=== PATIENT | female | born 1985 | race African-American/Black ===

== ENCOUNTER 2019-01-05 04:24 | Emergency (ER) | payer SELFPAY ==
--- NOTE | 2019-01-05 04:42 | PDOC ---
History of Present Illness - General Stated Complaint: VAGINAL SX Time Seen by Provider: 01/05/19 04:39 History Source: Patient Exam Limitations: No Limitations - History of Present Illness Initial Comments: 33 year old female with no PMH, recently stopped depo treatment (11/2018) presented to ED for bilateral lower quadrant abdominal pain since 0200. Pt reported she was resting comfortably, then suddenly developed bilateral lower abdominal pain. Pt reported her pain is constant, radiating to the back, no aggravating or alleviating factors. Pt denied nausea, vomiting, diarrhea, constipation, dysuria, hematuria, flank pain, vaginal bleeding, vaginal discharge. ROS General: denied fever, chills, generalized weakness. HEENT: denied sore throat, rhinorrhea, ear pain. Cardiovascular: denied chest pain, palpitations, syncope, diaphoresis. Respiratory: denied shortness of breath, cough, sputum production, hemoptysis. Gastrointestinal: admitted to abdominal pain. denied nausea, vomiting, diarrhea , constipation, blood in stool. Genitourinary: denied dysuria, increased urinary frequency, vaginal bleeding, vaginal discharge, hematuria, urinary incontinence, flank pain. Back: denied back pain. Musculoskeletal: denied joint pain, muscle pain, joint swelling. Neurological: denied headache, dizziness, numbness, tingling, weakness. Integumentary: denied rash, laceration, abrasion. Hematologic/Lymphatic: denied bruising or bleeding. PE Constitutional: Well-nourished, Well-developed, appearing stated age. HEENT: head is normocephalic, atraumatic. EOMI. PERRLA. Neck: supple. Full ROM. Cardiovascular: regular heart rhythm. no murmurs. no pericardial friction rub. Respiratory: clear to auscultation bilaterally. no crackles, rhonchi or wheezing. no stridor. Gastrointestinal: soft, flat. tender to LLQ, RLQ, suprapubic area - worst in the LLQ. normal bowel sounds. no guarding, masses. positive rebound. negative rovsings. negative psoas. Extremities: peripheral pulses intact. no lower extremity edema. Neurological: CN 2-12 grossly intact. moves all four extremities. Psych: awake, alert, oriented x3. follows commands. answers questions appropriately. Pelvic: normal external genitalia. no blood in vaginal canal. normal white discharge noted. no CMT. no adnexal tenderness. Past History - Past Medical History Allergies/Adverse Reactions: Allergies Allergy/AdvReac Type Severity Reaction Status Date / Time No Known Allergies Allergy Verified 01/05/19 05:03 Home Medications: Ambulatory Orders Ciprofloxacin HCl [Cipro] 500 mg PO Q12H #14 tablet 01/05/19 Metronidazole 500 mg PO Q8H #21 tablet 01/05/19 ED Treatment Course - LABORATORY CBC & Chemistry Diagram: 01/05/19 05:12 01/05/19 05:12 Medical Decision Making - Medical Decision Making 33 year old female with above PMH presented to ED for abrupt bilateral lower sharp abdominal pain without other associated symptoms. Pt was tender on lower abdominal examination, with normal pelvic examination. Initial Vital Signs Temp Pulse Resp BP Pulse Ox 98.1 F 118 H 18 113/62 98 01/05/19 05:00 01/05/19 05:00 01/05/19 05:00 01/05/19 05:00 01/05/19 05:00 Afebrile. Tachycardic. No tachypnea. No hypotension. No hypoxia on room air. Labs ordered: CBC, CMP, serum beta quant, UA/UC, T&S, coags Imaging ordered: CT abdomen/pelvis with IV contrast Medications ordered: tylenol 975 mg PO once 01/05/19 05:50 CBC WBC 14.6 K/mm3 (4.0-10.0) H 01/05/19 05:12 RBC 4.85 M/mm3 (3.60-5.2) 01/05/19 05:12 Hgb 13.0 GM/dL (10.7-15.3) 01/05/19 05:12 Hct 39.9 % (32.4-45.2) 01/05/19 05:12 MCV 82.3 fl (80-96) 01/05/19 05:12 MCH 26.9 pg (25.7-33.7) 01/05/19 05:12 MCHC 32.7 g/dl (32.0-36.0) 01/05/19 05:12 RDW 14.6 % (11.6-15.6) 01/05/19 05:12 Plt Count 227 K/MM3 (134-434) 01/05/19 05:12 MPV 7.5 fl (7.5-11.1) 01/05/19 05:12 Absolute Neuts (auto) 12.4 K/mm3 (1.5-8.0) H 01/05/19 05:12 Neutrophils % 85.0 % (42.8-82.8) H 01/05/19 05:12 Lymphocytes % 7.6 % (8-40) L 01/05/19 05:12 Monocytes % 6.7 % (3.8-10.2) 01/05/19 05:12 Eosinophils % 0.1 % (0-4.5) 01/05/19 05:12 Basophils % 0.6 % (0-2.0) 01/05/19 05:12 Nucleated RBC % 0 % (0-0) 01/05/19 05:12 Leukocytosis with left shift. No anemia. Urine Test Results Urine Color Yellow 01/05/19 05:12 Urine Appearance Clear 01/05/19 05:12 Urine pH 6.0 (5.0-8.0) 01/05/19 05:12 Ur Specific [place] 1.021 (1.010-1.035) 01/05/19 05:12 Urine Protein Negative (NEGATIVE) 01/05/19 05:12 Urine Glucose (UA) Negative (NEGATIVE) 01/05/19 05:12 Urine Ketones Negative (NEGATIVE) 01/05/19 05:12 Urine Blood Trace (NEGATIVE) 01/05/19 05:12 Urine Nitrite Negative (NEGATIVE) 01/05/19 05:12 Urine Bilirubin Negative (NEGATIVE) 01/05/19 05:12 Ur Leukocyte Esterase Negative (NEGATIVE) 01/05/19 05:12 Negative for UTI. Trace hematuria. 01/05/19 06:20 CMP Sodium 140 mmol/L (136-145) 01/05/19 05:12 Potassium 4.2 mmol/L (3.5-5.1) 01/05/19 05:12 Chloride 109 mmol/L (98-107) H 01/05/19 05:12 Carbon Dioxide 26 mmol/L (21-32) 01/05/19 05:12 Anion Gap 5 MMOL/L (8-16) L 01/05/19 05:12 BUN 17.0 mg/dL (7-18) 01/05/19 05:12 Creatinine 0.9 mg/dL (0.55-1.3) 01/05/19 05:12 Est GFR (CKD-EPI)AfAm 97.37 01/05/19 05:12 Est GFR (CKD-EPI)NonAf 84.01 01/05/19 05:12 Random Glucose 96 mg/dL (74-106) 01/05/19 05:12 Calcium 8.9 mg/dL (8.5-10.1) 01/05/19 05:12 Total Bilirubin 0.3 mg/dL (0.2-1) 01/05/19 05:12 AST 25 U/L (15-37) 01/05/19 05:12 ALT 27 U/L (13-61) 01/05/19 05:12 Alkaline Phosphatase 101 U/L (45-117) 01/05/19 05:12 Total Protein 7.1 g/dl (6.4-8.2) 01/05/19 05:12 Albumin 3.7 g/dl (3.4-5.0) 01/05/19 05:12 Beta HCG, Quant < 1.0 mIU/ml 01/05/19 05:12 No electrolyte abnormalities. No POLO. No transaminitis. Beta quant negative. 01/05/19 07:05 Pt signed out to Dr. Bellamy. Pending CT report, dispo. Discharge - Discharge Information Problems reviewed: Yes Clinical Impression/Diagnosis: Diverticulitis Condition: Stable Disposition: HOME - Additional Discharge Information Prescriptions: Ciprofloxacin HCl [Cipro] 500 mg PO Q12H #14 tablet Metronidazole 500 mg PO Q8H #21 tablet - Follow up/Referral Referrals: Rubio Head MD [Staff Physician] - Odilon Willson MD [Primary Care Provider] - - Patient Discharge Instructions Patient Printed Discharge Instructions: DI for Diverticulitis Additional Instructions: Discharge Instructions: You were seen in the emergency department for abdominal pain. You had a CT scan showing an infection of the upper colon, either colitis or diverticulitis. Colitis is an infection in the wall of the colon. Diverticulitis is an infection of small pouches in the colon; these pouches are called diverticula. They do not cause symptoms unless they are infected. Diverticulitis is more commonly located in the left lower abdomen. Your infection is in the right upper abdomen. Because of this, you may need a colonoscopy for additional evaluation. Home Care and Follow Up: - You have been prescribed two antibiotics that will need to be taken for the next week. Ciprofloxacin should be taken every 12 hours. Metronidazole (Flagyl) should be taken every 8 hours. Example: Both meds at 7am, flagyl at 3pm, cipro at 7pm, flagyl at 11pm. - Do not drink alcohol with metronidazole - Stick to a liquid diet for the next 2-3 days until your symptoms resolve. - You will need to follow up with a GI specialist for additional testing. You have been given contact information for Dr Head. You may need a colonoscopy because your infection is in an unusual location. Please call to schedule an appointment within the next 1-2 weeks or earlier if your symptoms do not improve. - Seek immediate care for worsening symptoms, severe abdominal pain, inability to eat or drink, if you become dehydrated (dry mouth/lips, lack of urination), you develop high fevers to 101F or higher, or you have any other medical emergency. - Post Discharge Activity Work/Back to School Note: Back to Work
[2019-01-05] MEDS ORDERED: ACETAMINOPHEN 325 MG TABLET (FP) PO ONE (04:54)
[2019-01-05 05:03] VITALS: TEMP 98.1; BMI 35.7
[2019-01-05] MEDS ORDERED: ACETAMINOPHEN 1000 MG/100 ML VIAL (NON FORMULARY) IVPB ONE (05:07)
[2019-01-05] MEDS ORDERED: SODIUM CHLORIDE 1,000 ML IV STA (05:07)
[2019-01-05] MEDS ORDERED: ACETAMINOPHEN 325 MG TABLET (FP) ONE (05:08)
[2019-01-05 05:29] LABS: BASO % 0.6 % (0-2.0); EOS % 0.1 % (0-4.5); HEMATOCRIT 39.9 % (32.4-45.2); LYMPH % 7.6 % (8-40); MCH 26.9 pg (25.7-33.7); MCHC 32.7 g/dl (32.0-36.0); MEAN CELL VOLUME 82.3 fl (80-96); MEAN PLT VOLUME 7.5 fl (7.5-11.1); MONO % 6.7 % (3.8-10.2); PLATELET COUNT 227 K/MM3 (134-434); RBC 4.85 M/mm3 (3.60-5.2); RDW 14.6 % (11.6-15.6); WHITE BLOOD COUNT 14.6 K/mm3 (4.0-10.0)
[2019-01-05 05:37] LABS: EPI CELLS 0.6 /HPF (0-5/HPF); HYALINE CASTS 0 /lpf (0-8); URINE APPEARANCE CLEAR; URINE BACTERIA 3.4 /hpf (NEGATIVE); URINE BILIRUBIN NEGATIVE (NEGATIVE); URINE COLOR YELLOW; URINE GLUCOSE (UA) NEGATIVE (NEGATIVE); URINE KETONE NEGATIVE (NEGATIVE); URINE LEUK ESTERASE NEGATIVE (NEGATIVE); URINE NITRITE NEGATIVE (NEGATIVE); URINE PROTEIN NEGATIVE (NEGATIVE); URINE RBC 5 /hpf (0-4); URINE WBC 0 /hpf (0-5)
--- NOTE | 2019-01-05 05:51 | PDOC ---
Attending Attestation - Resident Resident Name: Alvina Lund - ED Attending Attestation I have performed the following: I have examined & evaluated the patient, The case was reviewed & discussed with the resident, I agree w/resident's findings & plan, Exceptions are as noted - HPI HPI: 01/05/19 05:51 33 F with no PMH presents to ED with lower abdominal pain. Pt states that she awoke with pain at around 2am. Pt notes that the pain is constant, radiates to the back, not associated with any alleviating or aggravating factors. Pt denies F/C. Denies N/V/D. Denies vaginal discharge/bleeding. No flank pain. No dysuria. - Physicial Exam PE: 01/05/19 05:53 "GENERAL: Awake, alert, and fully oriented, in no acute distress. HEAD: No signs of trauma EYES: PERRLA, EOMI, sclera anicteric, conjunctiva clear ENT: Auricles normal inspection, hearing grossly normal, nares patent, oropharynx clear without exudates. Moist mucosa NECK: Nontender, no stepoffs, Normal ROM, supple, no lymphadenopathy, JVD, or masses LUNGS: Breath sounds equal, clear to auscultation bilaterally. No wheezes, and no crackles HEART: Regular rate and rhythm, normal S1 and S2, no murmurs, rubs or gallops ABDOMEN: + RLQ and LLQ TTP, normoactive bowel sounds. No guarding, no rebound. No masses EXTREMITIES: Normal range of motion, no edema. No clubbing or cyanosis. No cords, erythema, or tenderness NEUROLOGICAL: Cranial nerves II through XII intact. 5/5 strength and sensation in all extremities, Normal speech, normal gait, normal cerebellar function SKIN: Warm, Dry, normal turgor, no rashes or lesions noted. - Medical Decision Making 01/05/19 05:53 33 F with bilateral lower abdominal tenderness and pain. No pathology noted on pelvic exam. WIll r/o appy vs colitis/diverticulitis. - Labs, UA, UPT - CTAP - IVF, pain control
[2019-01-05 05:58] LABS: ALBUMIN 3.7 g/dl (3.4-5.0); BILIRUBIN,TOTAL 0.3 mg/dL (0.2-1); CALCIUM 8.9 mg/dL (8.5-10.1); CREATININE 0.9 mg/dL (0.55-1.3); POTASSIUM 4.2 mmol/L (3.5-5.1); TOT PROT 7.1 g/dl (6.4-8.2)
[2019-01-05 07:13] VITALS: BP 136/66
--- NOTE | 2019-01-05 08:06 | PDOC ---
*Physical Exam - Vital Signs Last Vital Signs Temp Pulse Resp BP Pulse Ox 98.1 F 107 H 108 H 136/66 98 01/05/19 05:00 01/05/19 07:11 01/05/19 07:11 01/05/19 07:11 01/05/19 07:11 ED Treatment Course - LABORATORY CBC & Chemistry Diagram: 01/05/19 05:12 01/05/19 05:12 - ADDITIONAL ORDERS Additional order review: Laboratory Results 01/05/19 01/05/19 01/05/19 05:28 05:12 05:12 PTT (Actin FS) Sodium 140 Potassium 4.2 Chloride 109 H Carbon Dioxide 26 Anion Gap 5 L BUN 17.0 Creatinine 0.9 Est GFR (CKD-EPI)AfAm 97.37 Est GFR (CKD-EPI)NonAf 84.01 Random Glucose 96 Calcium 8.9 Total Bilirubin 0.3 AST 25 ALT 27 Alkaline Phosphatase 101 Total Protein 7.1 Albumin 3.7 Beta HCG, Quant Urine Color Yellow Urine Appearance Clear Urine pH 6.0 Ur Specific [place] 1.021 Urine Protein Negative Urine Glucose (UA) Negative Urine Ketones Negative Urine Blood Trace Urine Nitrite Negative Urine Bilirubin Negative Urine Urobilinogen 1.0 Ur Leukocyte Esterase Negative Urine WBC (Auto) 0 Urine RBC (Auto) 5 Urine Casts (Auto) 0 U Epithel Cells (Auto) 0.6 Urine Bacteria (Auto) 3.4 Blood Type A POSITIVE Antibody Screen Negative 01/05/19 01/05/19 05:12 05:12 PTT (Actin FS) 33.1 Sodium Potassium Chloride Carbon Dioxide Anion Gap BUN Creatinine Est GFR (CKD-EPI)AfAm Est GFR (CKD-EPI)NonAf Random Glucose Calcium Total Bilirubin AST ALT Alkaline Phosphatase Total Protein Albumin Beta HCG, Quant < 1.0 Urine Color Urine Appearance Urine pH Ur Specific [place] Urine Protein Urine Glucose (UA) Urine Ketones Urine Blood Urine Nitrite Urine Bilirubin Urine Urobilinogen Ur Leukocyte Esterase Urine WBC (Auto) Urine RBC (Auto) Urine Casts (Auto) U Epithel Cells (Auto) Urine Bacteria (Auto) Blood Type Antibody Screen 01/05/19 05:12 RBC 4.85 MCV 82.3 MCHC 32.7 RDW 14.6 MPV 7.5 Neutrophils % 85.0 H Lymphocytes % 7.6 L Monocytes % 6.7 Eosinophils % 0.1 Basophils % 0.6 - Medications Given in the ED: ED Medications Discontinued Medications Generic Name Dose Route Start Last Admin Trade Name Cyn PRN Reason Stop Dose Admin Acetaminophen 975 mg 01/05/19 04:54 01/05/19 05:00 Tylenol - PO 01/05/19 04:55 975 mg ONCE ONE Administration Acetaminophen 1,000 mg 01/05/19 05:07 01/05/19 05:59 Ofirmev Injection - IVPB 01/05/19 05:08 Not Given ONCE ONE Sodium Chloride 1,000 mls @ 1,000 mls/hr 01/05/19 05:07 01/05/19 05:30 Normal Saline - IV 01/05/19 06:06 1,000 mls/hr ASDIR STA Administration Medical Decision Making - Medical Decision Making 01/05/19 07:22 Sign out received from Dr Lund. Taylor Ontiveros is an otherwise healthy 33yo woman who presented overnight with acute onset of bilateral lower abdominal pain. ED course so far notable for: - TTP in bilateral lower abdomen. Pelvic without concerning findings - Labs notable for leukocytosis to 14 - bHCG negative, UA negative - CT abd/pelvis completed. Read pending 01/05/19 08:06 - CT w/ diverticulitis v colitis at the hepatic flexure - Reassessed. Now with diffuse abdominal TTP - Discussed with pt. Would prefer to complete abx at home. Will PO challenge. - Given continued lower abdominal tenderness and no pathology noted on CT, will complete TVUS to evaluate for ovarian causes of pain. Pt agrees with this plan. 01/05/19 09:44 - TVUS without any pathology - Pt able to tolerate water - Discussed home care, return precautions and follow up including possible need for colonoscopy. Pt states understanding and agreement. Will d/c home with GI and PMD follow up. Discussed with Dr Gabriel Bellamy PGY2 Discharge - Discharge Information Problems reviewed: Yes Clinical Impression/Diagnosis: Diverticulitis Condition: Stable Disposition: HOME - Admission No - Additional Discharge Information Prescriptions: Ciprofloxacin HCl [Cipro] 500 mg PO Q12H #14 tablet Metronidazole 500 mg PO Q8H #21 tablet - Follow up/Referral Referrals: Odilon Willson MD [Primary Care Provider] - Rubio Head MD [Staff Physician] - - Patient Discharge Instructions Patient Printed Discharge Instructions: DI for Diverticulitis Additional Instructions: Discharge Instructions: You were seen in the emergency department for abdominal pain. You had a CT scan showing an infection of the upper colon, either colitis or diverticulitis. Colitis is an infection in the wall of the colon. Diverticulitis is an infection of small pouches in the colon; these pouches are called diverticula. They do not cause symptoms unless they are infected. Diverticulitis is more commonly located in the left lower abdomen. Your infection is in the right upper abdomen. Because of this, you may need a colonoscopy for additional evaluation. Home Care and Follow Up: - You have been prescribed two antibiotics that will need to be taken for the next week. Ciprofloxacin should be taken every 12 hours. Metronidazole (Flagyl) should be taken every 8 hours. Example: Both meds at 7am, flagyl at 3pm, cipro at 7pm, flagyl at 11pm. - Do not drink alcohol with metronidazole - Stick to a liquid diet for the next 2-3 days until your symptoms resolve. - You will need to follow up with a GI specialist for additional testing. You have been given contact information for Dr Head. You may need a colonoscopy because your infection is in an unusual location. Please call to schedule an appointment within the next 1-2 weeks or earlier if your symptoms do not improve. - Seek immediate care for worsening symptoms, severe abdominal pain, inability to eat or drink, if you become dehydrated (dry mouth/lips, lack of urination), you develop high fevers to 101F or higher, or you have any other medical emergency. - Post Discharge Activity Work/Back to School Note: Back to Work
[2019-01-05] MEDS ORDERED: metroNIDAZOLE 500 MG TABLET PO ONE (09:44)
[2019-01-05] MEDS ORDERED: CIPROFLOXACIN 500 MG TABLET (RESTRICTED TO ID) PO ONE (09:44)
[2019-01-05] MEDS ORDERED: metroNIDAZOLE 250 MG TABLET ONE (10:05)
[2019-01-05 10:21] VITALS: PULSE 99
== END 2019-01-05 10:21 | disposition home or self-care (01) ==
LOC: JER 04:24
PROC: 3E0337Z Introduction of Electrolytic and Water Balance Substance into Peripheral Vein, Percutaneous Approach (ICD-10-PCS; principal; 2019-01-05)
DX: K57.92 Diverticulitis of intestine, part unspecified, without perforation or abscess without bleeding (principal)
CPT/HCPCS: 36415; 74177-TC; 76830-TC; 80053; 81003; 84702; 85025; 85730; 86850; 86900; 86901; 87086; 99283-25; J7030